=== PATIENT | male | born 1985 | race Caucasian/White ===

== ENCOUNTER 2018-06-06 18:19 | Inpatient (IN) | payer MEDICARE, MEDICAID, SELFPAY ==
[2018-06-06 18:20] VITALS: BP 130/74; PULSE 116; RESP 18; TEMP 37.2; O2SAT 98; BMI 29.7
--- NOTE | 2018-06-06 19:07 | ED.VIS.GEN ---
History of Present Illness Chief Complaint: Abd Pain Informant: Patient Onset: Days - 1.5 Context: Gradual Onset Timing: Continuous Quality: ache Location: RLQ Current Severity: Moderate Maximum Severity: Moderate Worsened by: movement Relieved by: nothing Associated Symptoms: nausea, low back pain, low-grade fever around 100 Narrative: Patient states she has never had pain like this before. States he was having some generalized abdominal cramping yesterday but now it is more right lower quadrant pain. No urinary symptoms. Pain is somewhat colicky at times but not always, it is constant and not intermittent. The pain radiates into both anterior thighs down to both knees. Denies any radiation into his scrotum/testicles. No history of any surgeries. Has had normal bowel movements when he has had them, however his last one was 2 days ago and he states that is unusual for him, usually goes daily. - Past Medical History (1) Depression Status: Chronic (2) Back pain Status: Chronic Past Medical History - Allergies and Home Meds Allergies/Adverse Reactions: Allergies Penicillins Allergy (Verified 06/06/18 18:21) Hives Primary Care Physician: Lamont Escobar III, MD [Primary Care Provider] - Surgical History: no surgical history Smoking Status: Never smoker Review of Systems All systems negative except as indicated General: Reports: Fever, Malaise Cardiovascular: Denies: Chest pain, Palpitations Respiratory: Denies: Dyspnea, Cough, Dyspnea on exertion Gastrointestinal: Reports: Abdominal pain, Nausea, Constipation - No hard stools, just has not gone in 2 days despite normal appetite. Denies: Vomiting, Diarrhea, Melena, Hematochezia Genitourinary: Denies: Dysuria, Hematuria, Frequency Musculoskeletal: Reports: Back pain, Extremity Pain. Denies: Neck pain Physical Exam Vital Signs/Narrative: Vital Signs Temp Pulse Resp BP Pulse Ox 06/06/18 18:20 98.9 F 116 H 18 130/74 H 98 Inital Vital Signs reviewed: Yes General: Well nourished, Well developed, Unkempt Head: Normocephalic, Atraumatic Eyes: Perrl, EOMI ENT: Moist mucous membranes, No rhinorrhea Neck: Supple, Nontender Cardiovascular: Regular rate, Regular rhythm, No murmurs, Tachycardia - mild Respiratory: No distress, CTA bilaterally, Chest nontender Abdomen: Soft, Nondistended, Normal bowel sounds, Tender - Distal/lateral right lower quadrant. No significant tenderness at the true McBurney's point, Guarding - Voluntary. Negative for: Rebound tenderness Back: Normal Inspection, - - Right distal low back mild tenderness to palpation, around the SI joint. Negative for: CVA tenderness Extremities: Nontender, No edema Skin: Normal color, No rash Neurological: Alert, Oriented x3, Cranial nerves II-XII grossly intact, Normal Strength, Normal Sensation Psychological: Normal affect Diagnostic/Tx/Re-eval Impressions Abdomen/Pelvis CT 06/06/18 19:06 IMPRESSION: Acute appendicitis. No free air. Electronically Signed: Jermaine Villasenor DO at 20:44 EDT , Service support , 06/06/18 19:06 Abdomen/Pelvis W IV Cont ONLY [CT] Stat Laboratory Results 06/06/18 06/06/18 06/06/18 Range/Units 19:17 19:17 19:25 WBC 12.5 H (4.4-11.0) K/mm3 RBC 5.15 (4.6-6.2) M/mm3 Hgb 15.3 (13.0-16.5) g/dl Hct 45.0 (40-54) % MCV 87.4 (80-94) fL MCH 29.7 (27.0-32.0) pg MCHC 34.0 (32-36) g/gl RDW 12.8 (11.6-14.6) % RDW Differential 41.2 (35.1-43.9) fl Plt Count 189 (150-450) K/mm3 MPV 9.2 (6.2-12.0) fl Immature Gran % (Auto) 0.200 (0.0-0.9) % Neut % (Auto) 73.6 H (47-70) % Lymph % (Auto) 9.7 L (19-41) % [place] % (Auto) 16.1 H (0-10) % Eos % (Auto) 0.2 (0-5) % Baso % (Auto) 0.2 (0-1) % Absolute Neuts (auto) 9.2 H (2.0-7.7) X10^3/uL Absolute Lymphs (auto) 1.21 (0.83-4.51) X10^3/ul Total Counted Not Reportable Differential Comment SCANNED Diff Path Review February Sodium 137 (136-145) mmol/L Potassium 3.7 (3.5-5.1) mmol/L Chloride 105 (98-107) mmol/L Carbon Dioxide 24.0 (21.0-32.0) mmol/L Anion Gap 8 (5-15) BUN 7 (7-18) mg/dL Creatinine 1.14 (0.70-1.30) mg/dL Estim Creat Clear Calc 104.16 ml/min Est GFR (MDRD) Af Amer 95 (>60) mL/min Est GFR (MDRD) Non-Af 79 (>60) mL/min BUN/Creatinine Ratio 6.1 L (10-20) RATIO Glucose 100 (74-106) mg/dL Calcium 8.8 (8.5-10.1) mg/dL Urine Color Yellow (Yellow) Urine Clarity Clear (Clear) Urine pH 6.0 (5.0 - 8.0) Ur Specific [place] 1.015 (1.002-1.030) Urine Protein 15 H (Negative) mg/dl Urine Glucose (UA) Normal (Normal) mg/dl Urine Ketones Negative (Negative) mg/dl Urine Occult Blood Negative (Negative) /ul Urine Nitrite Negative (Negative) Urine Bilirubin Negative (Negative) mg/dL Urine Urobilinogen Normal (Normal) mg/dl Ur Leukocyte Esterase 25 H (Negative) /ul Urine RBC 0 SEEN (0-5) /hpf Urine WBC 0 SEEN (0-5) /hpf Ur Squamous Epith Cells 0 SEEN (0-5) /hpf Urine Bacteria RARE (None Seen) /hpf Urine Mucus 2+ (<or=2+) /hpf - Medical Decision Making Patient was treated with morphine and had significant improvement of his discomfort and remained stable throughout the emergency department visit. Labs show mild leukocytosis. CT was performed given appendicitis and kidney stones both being included in the differential diagnosis, the CT showed acute appendicitis with a nonruptured appendix at 7 mm. I saw this when I checked the report, no call was received from radiology. Patient remained stable. I gave him aztreonam 2 g IV, since he has a penicillin allergy. I recommended admission, however the patient initially was very adamant that he be discharged home AGAINST MEDICAL ADVICE on antibiotics. We discussed at length risks and benefits of doing so, and eventually changed his mind and at this time is okay staying in the hospital. Discussed with Dr. Gao who will likely recommend surgery in the morning. The patient understands this and is willing to stay in the hospital. ED Disposition - Plan for ED Patient: Disposition: Acute Care [facility] Chief Complaint: Abd Pain Diagnosis: Acute appendicitis
[2018-06-06] MEDS: 0.9% Normal Saline 1,000 ML 125 ML IV (19:19)
[2018-06-06] MEDS: Ondansetron 4 MG/2 ML Vial IV (19:19)
[2018-06-06] MEDS: Morphine 4 MG/ML Syringe IV ×2 (19:19→23:48)
[2018-06-06 19:28] LABS: Absolute Lymphocyte Count 1.21 X10^3/ul (0.83-4.51); Absolute Neutrophil Count 9.2 X10^3/uL (2.0-7.7); Basophil# 0.02 X10^3/uL; Basophil% 0.2 % (0-1); Eosinophil# 0.02 X10^3/uL; Eosinophils% 0.2 % (0-5); Hemoglobin 15.3 g/dl (13.0-16.5); Lymphocyte # 1.21 X10^3/ul (4.0); Lymphocyte % 9.7 % (19-41); Mean Corpuscular Hgb 29.7 pg (27.0-32.0); Mean Corpuscular Volume 87.4 fL (80-94); Mean Platelet Vol. 9.2 fl (6.2-12.0); Monocyte# 2.01 X10^3/uL; Monocyte% 16.1 % (0-10); Neutrophil # 9.17 X10^3/uL (2.7-7.7); Neutrophil % 73.6 % (47-70); Platelet Count 189 K/mm3 (150-450); RBC Distribution Width CV 12.8 % (11.6-14.6); RBC Distribution Width SD 41.2 fl (35.1-43.9); Red Blood Count 5.15 M/mm3 (4.6-6.2); White Blood Count 12.5 K/mm3 (4.4-11.0)
[2018-06-06 19:31] LABS: Differential Indicated SCAN CRITERIA MET; POSITIVE COUNT NO; POSITIVE DIFFERENTIAL YES; POSITIVE MORPHOLOGY NO
[2018-06-06 19:31] LABS: Red Blood Cells-Urine 0 SEEN /hpf (0-5); Squamous Epithelial Cells - UA 0 SEEN /hpf (0-5); White Blood Cells 0 SEEN /hpf (0-5)
[2018-06-06 19:32] LABS: Color, Urine Yellow (Yellow); Glucose, Dipstick Normal (Normal); Ketone-Dipstick Negative (Negative); Leukocyte Esterase-Dipstick 25 /ul (Negative); Nitrite-Dipstick Negative (Negative); Occult Blood-Urine Negative /ul (Negative); Protein-Dipstick 15 mg/dl (Negative); Specific Gravity, Urine 1.015 (1.002-1.030); Urine Bilirubin Dipstick Negative (Negative); Urine Clarity Clear (Clear); Urine Urobilinogen Normal (Normal)
[2018-06-06 19:38] LABS: Anion Gap 8 (5-15); BUN 7 mg/dL (7-18); BUN/Creat Ratio 6.1 RATIO (10-20); Calcium,Total 8.8 mg/dL (8.5-10.1); Chloride 105 mmol/L (98-107); Creatinine, Serum 1.14 mg/dL (0.70-1.30); EST Glomerular Filtration Rate 79 mL/min (>60); Est Glom Filt Rate - Afr Amer 95 mL/min (>60); Estimated Creatinine Clearance 104.16 ml/min; Glucose 100 mg/dL (74-106); Potassium 3.7 mmol/L (3.5-5.1); Sodium Level 137 mmol/L (136-145)
[2018-06-06 19:40] LABS: Bacteria RARE /hpf (None Seen); Mucous, Urine 2+ /hpf (<or=2+)
[2018-06-06 19:57] LABS: Differential Comment SCANNED
[2018-06-06 20:27] VITALS: BP 126/82; PULSE 81; RESP 16; O2SAT 98
[2018-06-06 22:31] VITALS: BP 136/75; PULSE 91; RESP 16; O2SAT 98
[2018-06-07] VITALS (17 sets, daily range): BP systolic 111–165; BP diastolic 63–99; PULSE 57–99; RESP 16–20; TEMP 36.3–37.8; O2SAT 93–99; BMI 29.7; BMI 29.9
--- NOTE | 2018-06-07 | APP_PTH ---
PATIENT: LENNY PALAFOX LOC: MS3 U#:[id number] AGE/SX: 33/M ROOM: MS313 RE06/07/[address]: Dr. Marnie Gao MD : 1985 BED: 1 DIS: 06/08/2018 SPEC #: [id number] RECD: 06/07/18 12:14 STATUS: MAGDALENA REQ #: [id number] GEOVANNY: 06/07/18 00:[address]: Marnie Gao DEPT: SURGICAL PATHOLOGY RECD BY: Josh Lloyd ENTERED: 06/07/18 12:14 SP TYPE: APPENDIX OTHR DR: Dr. Lamont Escobar III, MD Tissues: Appendix, NOS Procedures: Surgery Specimen Level III HEADER OPERATION: Laparoscopic appendectomy PRE-OP DIAGNOSIS: Right lower quadrant pain, abdominal CT scan TISSUE SUBMITTED: Appendix MICROSCOPIC DIAGNOSIS Appendix, appendectomy: Acute appendicitis. Acute serositis. MICROSCOPIC DESCRIPTION Slides are reviewed. GROSS DESCRIPTION Received is one container labeled with the patient's name and designated appendix. The specimen consists of an appendix measuring 6 cm in length and 1 cm in greatest diameter. No obvious perforation is identified. Serial sections reveal a patent lumen. Instructor Creeler sections are submitted in four cassette. / AM:mayte 06/07/18 TC:2 CPT: [id number]
[2018-06-07] MEDS: Lactated Ringers 1,000 ML 100 ML IV ×2 (00:26→13:54)
--- NOTE | 2018-06-07 04:42 | PCM.HP.BLA ---
History and Physical Date of Admission: 06/07/18 Chief Complaint: abdominal pain History of Present Illness: 33 y/o WM presents with right lower quadrant abdominal pain since Monday evening. Has associate nausea. Denies fevers. No previous such abdominal pain. Evaluated in the ED. WBC 12.5K, left shift of differential, afebrile CT scan obtained - tubular, thick walled appendix >7mm consistent with acute appendicitis Patient given IV aztreonam in the ED. Has allergy to pcn - hives Patient has anorexia Past Medical History: denies major medical illnesses Past Surgical History: denies Medications: lexapro remeron ibuprofen prn Allergies: pcn - hives Social history: TOB use smokes regularly occasional marijuana use Review of Systems: General - denies fevers, has anorexia Cardiovascular denies chest pain, denies history of heart attack Pulmonary denies shortness of breath, denies coughing up blood Gastrointestinal as per HPI, denies blood in stools Neurological denies numbness/weakness of extremities, denies history of stroke Genitourinary denies burning with urination, denies blood in urine Hematological denies spontaneous/prolonged bleeding Skin denies open non healing wounds Musculoskeletal has back pain, denies history of fractures Endocrine denies diabetes Psychological denies hallucinations Physical examination: Vital signs Temp 98.9F HR 116 BP 130/74 RR 18 General WD/WN WM in no apparent distress, alert and oriented HEENT Normocephalic. EOM intact with sclera clear and no icterus noted. Neck is supple with no jugular venous distention noted. Trachea is midline. Lungs clear to auscultation, normal breath sounds in all lung vázquez. No rales/rhonchi/wheezing noted. No labored breathing noted, such as retractions. No cough heard. Heart normal S1 and S2 auscultated. No rubs/clicks/murmurs noted. Normal size and location by auscultation. Abdomen soft, protuberant, tender in right lower quadrant with rebound, decreased bowel sounds, difficult to determine if any masses due to body habitus Extremities no calf tenderness noted. No pitting edema noted. Genitourinary/Rectal deferred Skin normal skin integrity. Neurological cranial nerves II-XII intact. Normal motor strength in arms and legs. No localized numbness detected. Psychological normal affect, patient is calm and appropriate Impression: right lower quadrant abdominal pain abnormal appendix by CT scan leukocytosis Discussion/Plan: I have discussed the above with the patient. The patient has signs/symptoms of appendicitis. I have offered the patient the procedure of laparoscopic appendectomy. I have explained the procedure to the patient. I have counseled the patient as to the risks of the procedure, including but not limited to: infection, bleeding, injury to any blood vessels/nerves, scar tissue, injury to any intrabdominal organs, injury to kidney/ureters, injury to bowel/bladder, intraabdominal abscess/bleeding, hernias at incisional sites, wound infections, possible open procedure, complications of anesthesia, postoperative pneumonia/cardiac problems/blood clots etc. the patient understands. He agrees to proceed. I have answered all questions to the patients satisfaction and the patient has no further questions.
--- NOTE | 2018-06-07 05:57 | PCM.IMDPSTOP ---
Immediate Post-Op Note Date of Procedure: 06/07/18 Primary Surgeon/Physician: Marnie Gao medical device engineer: NOT,DEFINED Pre-Operative Diagnosis: right lower quadrant abdominal pain, leukocytosis, abnormal appendix by CT scan Post-Operative Diagnosis: perforated appendicits with contained retroperitoneal abscess Surgery/Procedure Performed:: laparoscopic appendectomy Description of Surgical Findings:: small right inguinal hernia noted, perforated appendicitis with contained rupture to retroperitoneum, no peritonitis noted Estimated Blood Loss: 20 ml Specimen's removed: appendix Drains: 15 Fr round passive right in right lower quadrant Type of Anesthesia:: General ASA Class: ASA2 Mod Systematic Disease - Admit VTE Documentation VTE Present on Admission: Yes VTE Mechan Device Prophylaxis: SCD's
--- NOTE | 2018-06-07 05:58 | PCM.DC.APPY ---
Discharge Diet: No Restrictions - drink plenty of fluids Discharge Activity: Return to Normal Activity, May not drive while taking narcotic pain medications. Return to work on:: 06/22/18 Lifting Restrictions: no lifting greater than 20 pounds for 2 weeks. Call your doctor if your incision/area has: Continuous Slow Oozing, Foul Smelling Discharge Call your doctor if you observe: Fever of 101 or Higher Additional Dressing/Incision Instructions:: Leave dressings intact. Sponge bathe only Medications to take at Discharge Escitalopram Oxalate [Lexapro] 20 mg PO DAILY 06/03/14 Mirtazapine [Remeron] 7.5 mg PO QHS 06/03/14 Clindamycin HCl [Cleocin] 300 mg PO Q6H #40 capsule 08/10/17 Hydrocodone/Acetaminophen [[place] 5-325 Tablet] 1 ea PO Q6H PRN PRN 7 Days #20 tab 06/07/18 Ibuprofen [Motrin] 600 mg PO Q6H PRN 06/07/18 Ciprofloxacin [Cipro] 500 mg PO BID #10 tab 06/08/18 Phenazopyridine HCl [Pyridium] 100 mg PO BID PRN PRN #10 tab 06/08/18 Allergies/Adverse Reactions: Allergies Penicillins Allergy (Verified 06/06/18 18:21) Hives The following prescriptions were given: Hydrocodone/Acetaminophen [[place] 5-325 Tablet] 1 ea PO Q6H PRN PRN 7 Days #20 tab PRN Reason: Pain Phenazopyridine HCl [Pyridium] 100 mg PO BID PRN PRN #10 tab PRN Reason: dysuria Ciprofloxacin [Cipro] 500 mg PO BID #10 tab Primary Care Physician: Lamont Escobar III, MD [Primary Care Provider] - Test Results: Test results from this visit will be discussed in further detail at your follow-up appointment, if applicable. Please Follow Up With: Marnie Gao MD - call When: to be seen on June 11, 11:00
[2018-06-07] MEDS: Bupivacaine Mpf 0.5% 30 ML VIAL (07:33)
--- NOTE | 2018-06-07 07:57 | OP.PCM_ITS ---
Report of Operation Date of Procedure: 06/07/18 Pre-Operative Diagnosis: right lower quadrant abdominal pain, leukocytosis, abnormal appendix by CT scan Post-Operative Diagnosis: perforated appendicits with contained retroperitoneal abscess Surgery/Procedure Performed:: laparoscopic appendectomy Description of Surgical Findings:: small right inguinal hernia noted, perforated appendicitis with contained rupture to retroperitoneum, no peritonitis noted signs and displays salesperson: NOT,DEFINED Type of Anesthesia:: General Anesthesiologist: Donovan Ly Specimen's removed: appendix Drains: 15 Fr round passive right in right lower quadrant Estimated Blood Loss (mL): 20 ml Fluids Replaced: 1200 ml RL Description of Procedure: After informed consent was obtained, the patient was brought into the operating room. Appropriate time out protocol was followed. He was then placed in the supine position on the operating table. The patient was then placed under general anesthesia. The patient?s abdomen was then prepped with a sterile surgical skin preparation and sterile surgical drapes were placed. The infraumbilical skin fold was grasped with penetrating clamps and the skin and subcutaneous tissues were infiltrated with 0.5% marcaine. A skin incision was then made with a 15 blade scalpel. A Veress needle was then inserted into the intraabdominal cavity and checked to be in the proper position with a normal saline drop test. A CO2 pneumoperitoneum was then created. Once this was achieved, the Veress needle was removed and a 5 mm trocar was placed in its stead. A 5 mm laparoscope was then inserted into the trocar. Careful examination of the intraabdominal contents was then done. There was no evidence of injury to any internal organs from placement of the Veress needle or the trocar. Under direct visualization, a 12mm suprapubic trocar and a 5mm left lower quadrant trocar was then placed into the intraabdominal cavity. The skin and subcutaneous tissues at these sites were first infiltrated with 0.5%. Attention was then directed to the right lower quadrant. There was a large amount of inflammation in the right lower quadrant. The appendix was not well visualized. The inflammatory tissue was dissected using the Harmonic scalpel. This took some time. The appendix was thus visualized. It was retrocecal. The dissection continued to follow to the tip of the appendix. The distal aspect of the appendix was adherent to the side wall and there was a contained retroperitoneal abscess that penetrated through the peritoneal lining. This was copiously lavaged and irrigated. There was purulent fluid noted, but this was contained. The mesentery of the appendix was taken down by cauterizing the tissue from the free edge to the base of the appendix with the Kleppinger device. Once the base of the appendix was freed of surrounding tissues, then the linear gastrointestinal stapling device was brought into the abdominal cavity via the 12mm port and placed across the base of the appendix. The stapling device was fired, thus stapling across the base of the appendix and transecting it simultaneously. The appendix was then placed in an Endobag and this was brought out through the suprapubic trocar. The appendix was then forwarded to Pathology for analysis. The appendiceal stump was carefully examined. There was no evidence of any active bleeding or fecal leakage. Due to the inflammatory oozing, surgicel was applied to the area. A 15 Fr round drain was placed in the intraabdominal cavity. The surrounding tissues were also examined and there was no evidence of any active bleeding or fecal/bile leakage. The intraabdominal cavity was examined and there was no evidence of further inflammation or tissue abnormality. There was no evidence of any purulent peritoneal fluid. The CO2 pneumoperitoneum was released and all trocars were removed intact. The suprapubic fascia was reapproximated with a figure-of-8 vicryl suture. The drain was sutured to the skin using nylon suture. All skin incisions were reapproximated with monocryl suture. Cavilon and steristrips were applied to reinforce skin closure and proper sterile dressings were placed. The patient was then extubated and brought to the Recovery Room in stable condition. - Complications none noted - Admit VTE Documentation VTE Present on Admission: Yes VTE Mechan Device Prophylaxis: SCD's
[2018-06-07] MEDS: Ipratropium/Albuterol Sulfate 3 ML AMPUL.NEB INHALATION (08:43)
--- NOTE | 2018-06-07 08:46 | CASEMGMT ---
Social Work Note Pt is listed as self pay on this worker's report. CEFERINO placed a call to [facility] and spoke with Chely. Per Cehly pt has Medicare and Medicaid. Chely Rosenberg LOT ATTENDANT, [employer]TING
[2018-06-07 10:55] LABS: Pathologist Review Reviewed
[2018-06-07] MEDS: HYDROcodone Bitartrate/Apap 5/325 Tablet PO ×2 (12:29→21:17)
[2018-06-07] MEDS: Morphine 4 MG/ML Syringe IV ×2 (13:52→17:49)
[2018-06-08] MEDS: Lactated Ringers 1,000 ML 100 ML IV ×2 (00:23→10:15)
[2018-06-08 03:06] VITALS: BP 132/84; PULSE 93; RESP 16; TEMP 36.4; O2SAT 92
[2018-06-08] MEDS: Phenazopyridine 95 MG Tablet PO ×2 (03:17→08:37)
[2018-06-08] MEDS: Mirtazapine 15 MG Tablet PO (03:17)
[2018-06-08] MEDS: HYDROcodone Bitartrate/Apap 5/325 Tablet PO ×2 (07:05→13:47)
--- NOTE | 2018-06-08 07:26 | PCM.PN.SRG ---
Patient Problems: Active and Suspected Problems Acute appendicitis (Acute) Subjective: Patient complaint of pain of lower abdomen, still requiring IV pain medications, also had complaint burning with urination and he states that this is relieved by pyridium denies passing flatus Has not ambulated in hallways - Physical Exam General: Alert, Oriented x3 Oral: Moist Mucosa Neck: Supple Abdomen: Soft, - - ROSALIA drain - serosanguinous drainage, no purulent Vital Signs Temp Pulse Resp BP Pulse Ox 97.6 F L 93 16 132/84 H 92 06/08/18 03:06 06/08/18 03:06 06/08/18 03:06 06/08/18 03:06 06/08/18 03:06 Oxygen Delivery Method Room Air Intake and Output for Last 24 Hours 06/06/18 06/07/18 06/08/18 23:59 23:59 23:59 Intake Total 1553 / 3573 1365 / 1365 Output Total 50 / 780 550 / 550 Balance 1503 / 2793 815 / 815 Medical Necessity - Tobacco Use Smoking Status: Current every day smoker Assessment/Plan All Active Problems Acute appendicitis (Acute) POD#1 s/p laparoscopic appendectomy for contained perforation appendix with abscess Plan: Continue antibiotics encourage ambulation and pulmonary toilet maintain ROSALIA drain advance diet when passing flatus patient requesting ibuprofen
[2018-06-08 08:36] VITALS: BP 113/78; PULSE 91; RESP 18; TEMP 36.7; O2SAT 93
[2018-06-08] MEDS: Ibuprofen 600 MG Tablet PO ×2 (08:37→16:21)
--- NOTE | 2018-06-08 10:20 | CASEMGMT ---
JUDITH GAGE Face to Face with patient for initial transition planning/care coordination assessment. RN CM introduced self and role at [facility]. Patient lying in bed, alert and oriented. Patient willing to participate in assessment and is able to answer all questions appropriately. Care providers, pharmacy, and demographics verified. See link attached. Patient wishes to discharge home, denies need for home health at this time. Patient states he has no further needs or concerns at this time. CM to follow for discharge planning needs that may arise. Disposition Plan: Patient to discharge home with family support and follow-up plans in place. Chely ALEXANDER, RN, CM
[2018-06-08 13:50] VITALS: BP 131/87; PULSE 89; RESP 18; TEMP 36.5; O2SAT 97
--- NOTE | 2018-06-08 17:14 | PCM.PN.SRG ---
Patient Problems: Active and Suspected Problems Acute appendicitis (Acute) Subjective: Patient states that he wants to be discharged, feels anxious in hospital complaint of right shoulder pain- feels like numb then blood rushing into it - Physical Exam Vital Signs Temp Pulse Resp BP Pulse Ox 97.7 F L 89 18 131/87 H 97 06/08/18 13:50 06/08/18 13:50 06/08/18 13:50 06/08/18 13:50 06/08/18 13:50 Oxygen Delivery Method Room Air Intake and Output for Last 24 Hours 06/06/18 06/07/18 06/08/18 23:59 23:59 23:59 Intake Total 1553 / 3573 3554 / 3554 Output Total 50 / 780 630 / 630 Balance 1503 / 2793 2924 / 2924 Medical Necessity - Tobacco Use Smoking Status: Current every day smoker Assessment/Plan All Active Problems Acute appendicitis (Acute) POD#1 s/p laparoscopic appendectomy for contained perforation appendix with abscess Plan: Patient tolerated diet, passing flatus I have discussed with him, he wants to be discharged. I have offered him options of staying an additional night versus going home, he wishes to be discharged. Will discharge on antibiotics, pain meds, and pyridium
== END 2018-06-08 18:30 | disposition home or self-care (01) | DRG 338 ==
LOC: ED 22:55 → MS3 23:25
PROVIDERS: Admitting Provider Surgery; Emergency Provider Emergency Medicine; Family Provider Family Medicine; PCP Family Medicine; Visit Provider Surgery
PROC: 0DTJ4ZZ Resection of Appendix, Percutaneous Endoscopic Approach (ICD-10-PCS; CPT 44970; principal; 2018-06-07 06:00)
DX: K35.3 Acute appendicitis with localized peritonitis (principal); K68.19 Other retroperitoneal abscess; K44.9 Diaphragmatic hernia without obstruction or gangrene
CPT/HCPCS: 74177; 80048; 81001; 85025; 88304; 93005; 94640; 97802; 99282; 99406; J7030; J7120; Q9967; A4216; J2405

== ENCOUNTER 2019-02-20 15:22 | Emergency (ER) | payer MEDICARE, SELFPAY ==
[2019-02-20 15:23] VITALS: BP 158/81; PULSE 84; RESP 16; TEMP 36.4; O2SAT 97; BMI 32.0
--- NOTE | 2019-02-20 15:43 | ED.VISSUMM ---
- ER Visit Summary Date of Service: 02/20/19 Chief Complaint: Right arm pain History of Present Illness: The patient is a 33 M presenting with right arm pain. He states this started 2 days ago. He does not recall a specific injury. He does not remember any heavy lifting. He has pain in his right bicep that is worsened with movement. His range of motion has improved today. He has been taking ibuprofen. He states he has a history of anxiety and this is causing his anxiety to worsen. He denies any other complaints. Physical Examination: Vitals are stable. Patient is afebrile. Alert no acute distress. HEENT exam is unremarkable. Neck is supple. Lungs are clear and equal bilaterally. Heart is regular rate and rhythm. Extremities mild tenderness along the bicep. Active full range of motion. Normal strength and sensation. No erythema or warmth. Neurovascularly intact distally. Skin is warm and dry. No focal neurologic deficit. Remainder of exam is unremarkable. Emergency Department Course and Treatment: Patient was given Toradol, Norflex IM. X-ray right humerus shows no acute process. Patient is feeling improved. He is given a prescription for Flexeril. Advised to follow-up with his primary care physician. Advised to return to ED if worsening complaints. Disposition: Discharge home Impression: Right arm pain This note was generated with [email or web address] dictation software. It may contain incorrect words, spelling, and punctuation that were not noted in review of the chart prior to signing ED Disposition - Plan for ED Patient: Disposition: Home or Assisted Living Instructions: ED Strain Muscle Ext Prescriptions: Cyclobenzaprine [Flexeril] 10 mg PO TID PRN #20 tablet PRN Reason: Muscle Spasm Referrals: Lamont Escobar III, MD [Primary Care Provider] -
[2019-02-20] MEDS: Ketorolac 60 MG/2 ML Vial IM (15:45)
[2019-02-20] MEDS: Orphenadrine 60 MG/2 ML Ampul IM (15:45)
--- NOTE | 2019-02-20 15:50 | RAD_ITS ---
STUDY: X-RAY - RIGHT HUMERUS REASON FOR EXAM: Male, 33 years old. Pain TECHNIQUE: Frontal and lateral view(s) of the humerus. COMPARISON: None. FINDINGS: Normal visualized humerus. There is no demonstrated fracture or osseous destructive process. There is no demonstrated soft tissue abnormality. RAD/Humerus min 2 Views IMPRESSION: Normal x-ray examination of the humerus. Electronically Signed: Brian Thomas MD at 16:13 EDT , Service support ,
--- NOTE | 2019-02-20 16:30 | ED.DEP ---
ED Disposition - Plan for ED Patient: Instructions: ED Strain Muscle Ext Prescriptions: Cyclobenzaprine [Flexeril] 10 mg PO TID PRN #20 tablet PRN Reason: Muscle Spasm Referrals: Lamont Escobar III, MD [Primary Care Provider] -
== END 2019-02-20 16:57 | disposition home or self-care (01) ==
PROVIDERS: Emergency Provider Emergency Medicine; Family Provider Family Medicine; PCP Family Medicine
DX: M79.601 Pain in right arm (principal); F41.9 Anxiety disorder, unspecified; Z72.0 Tobacco use
CPT/HCPCS: 73060; 96372; 99282

== ENCOUNTER 2019-04-11 13:17 | Emergency (ER) | payer MEDICARE, SELFPAY ==
[2019-04-11 13:17] VITALS: BP 151/98; PULSE 78; RESP 16; TEMP 36.8; O2SAT 96; BMI 31.6
--- NOTE | 2019-04-11 13:29 | ED.VIS.DENTA ---
History of Present Illness Chief Complaint: Dental Informant: Patient Onset: Days Context: Sudden Onset Timing: Continuous Quality: Pain Location: Lower incisors Current Severity: Mild Maximum Severity: Severe Worsened by: Cold and hot liquid Relieved by: - - Patient is taking ibuprofen, Aleve and used oral gel with no improvement Associated Symptoms: Hot, Cold, Sensitivity Narrative: Patient is a 33-year-old male who presents with dental pain started several days ago. Pain is worse with hot and cold liquids. He denies fever, chills or night sweats. He denies change in voice, denies swelling base of his tongue or floor of his mouth. He denies change in voice. Denies difficulty swallowing or breathing. There is no history rheumatic fever, murmur, SBE, IV drug use or being immune suppressed. Patient reports allergy to penicillin. Prior similar symptoms: Yes Recent Illness/Hospitalization: No Past Medical History - Allergies and Home Meds Allergies/Adverse Reactions: Allergies Penicillins Allergy (Verified 04/11/19 13:19) Hives Primary Care Physician: Lamont Escobar III, MD [Primary Care Provider] - Past Medical History: None Surgical History: no surgical history Lives: Alone Smoking Status: Current every day smoker Alcohol: None Drugs: None Review of Systems General: Denies: Chills, Fever, Malaise, Sweats Eyes: Denies: Visual changes - bilaterally, Blurred Vision - bilaterally ENT: Reports: - - No dysphonia or dysphasia. No difficulty opening or closing his mouth completely. Denies: Rhinorrhea, Sore throat Cardiovascular: Denies: Chest pain, Palpitations Respiratory: Denies: Dyspnea, Cough, Dyspnea on exertion Gastrointestinal: Denies: Nausea, Vomiting Musculoskeletal: Denies: Myalgias, Arthralgias, Neck pain, Back pain, Swelling, Extremity Pain, -, - Skin: Denies: Rash, Abscess, Wounds Hematologic: Denies: Easy bruising, Easy bleeding Physical Exam Vital Signs/Narrative: Vital Signs Temp Pulse Resp BP Pulse Ox 04/11/19 13:17 98.2 F 78 16 151/98 H 96 Inital Vital Signs reviewed: Yes General: Well nourished, Well developed Head: Normocephalic, Atraumatic ENT: Moist mucous membranes, No nasal trauma, No rhinorrhea, TM's clear. Negative for: Nasal congestion, Sinus tenderness, TM erythema left Mouth/Throat: Normal oral mucosa, Normal posterior oropharynx, No sublingual edema, Normal Stensen's duct, Focal gum swelling, Gingivitis, Tenderness on tooth percussion, Widespread dental decay. Negative for: Apthous ulcer, Dental trauma, Trismus Neck: Supple, No lymphadenopathy, Nontender, No JVD. Negative for: Anterior submandibular lymphadenopathy, Posterior submandibular lymphadenopathy, Anterior submental lymphadenopathy, Posterior submental lymphadenopathy, Soft tissue swelling, Submandibular soft tissue swelling, Submental soft tissue swelling, Parotid tenderness, - - Trachea is midline. There is no stridor. Cardiovascular: Regular rate, Regular rhythm, No murmurs, Normal S1, Normal S2 Respiratory: No distress, CTA bilaterally, Chest nontender Neurological: Alert, Oriented x3, Cranial nerves II-XII grossly intact, Normal Strength, Normal Sensation Psychological: Normal affect Diagnostic/Tx/Re-eval - Medical Decision Making Patient with extensive dental decay with exposure of dentin upper and lower incisors. There is evidence of periodontal disease as well as gingivitis. Will prescribe 10 [place] and clindamycin. He was in instructed to [facility] ED Disposition - Plan for ED Patient: Disposition: Home or Assisted Living Diagnosis: Dental caries extending into dentin, Dental caries extending into pulp, Gingivitis due to dental plaque, Periodontal disease Instructions: Dental Pain Prescriptions: Clindamycin HCl [Cleocin] 300 mg PO Q6H #28 cap Prescription Printed Hydrocodone Bitart/Apap 5-325 [[place] 5MG-325MG] 1 tab PO Q6H PRN PRN 3 Days #10 tab PRN Reason: Pain Prescription Printed Referrals: Lamont Escobar III, MD [Primary Care Provider] - [facility] [NON-STAFF] - As soon as possible
[2019-04-11 13:45] VITALS: PULSE 89; RESP 16; O2SAT 98
[2019-04-11] MEDS: HYDROcodone Bitartrate/Apap 5/325 Tablet PO (13:50)
[2019-04-11] MEDS: Clindamycin HCl 150 MG Capsule 300 MG PO (13:51)
[2019-04-11] MEDS: Ibuprofen 400 MG Tablet 800 MG PO (13:51)
== END 2019-04-11 13:53 | disposition home or self-care (01) ==
LOC: ED 13:45
PROVIDERS: Emergency Provider Emergency Medicine; Family Provider Family Medicine; PCP Family Medicine
DX: K05.6 Periodontal disease, unspecified (principal); K05.10 Chronic gingivitis, plaque induced; K02.9 Dental caries, unspecified; F17.200 Nicotine dependence, unspecified, uncomplicated
CPT/HCPCS: 99283

== ENCOUNTER 2021-07-24 19:35 | Emergency (ER) | payer MEDICARE, SELFPAY ==
[2021-07-24 19:36] VITALS: BP 143/80; PULSE 93; RESP 16; TEMP 36.2; O2SAT 97; BMI 24.6
--- NOTE | 2021-07-24 21:04 | EDS_ITS ---
HPI History of Present Illness Chief Complaint: Dental Informant: patient Narrative Narrative: 36-year-old male presents to the emergency room out of concern for dental abscess. Patient states he has widespread dental decay and he has had several these abscesses. He states that he did have a dentist but not anymore. He notes that the swelling seems to be worse today so he knew he needed to come in. No reported fevers. No difficulty swallowing. Patient states that he attempted to drain the gumline at home with no return of pus. [facility] Medical History Dental abscess Home Medications mirtazapine 15 mg PO QHS 06/03/14 [History Last Taken Unknown] Tylenol 1 g PO/SL 07/24/21 [History Last Taken Unknown] clindamycin HCl [Cleocin HCl] 300 mg PO Q6H #40 capsule 07/24/21 [Rx Last Taken Unknown] hydrocodone-acetaminophen 1 tab PO Q6H PRN PRN 3 Days #10 tablet 07/24/21 [Rx Last Taken Unknown] Allergy/AdvReac Type Severity Reaction Status Date / Time Penicillins Allergy Hives Verified 07/24/21 20:05 Social History (Updated 07/24/21 @ 21:[address] Cristian Amado DO) Smoking Status: Current every day smoker tobacco type: cigarettes substance use type: does not use ROS ROS ED Constitutional Constitutional ED: Denies chills or weight loss Eyes Eyes: Denies change in vision or diplopia ENT ENT ED: Reports other Details: Dental pain and facial swelling ; Denies ear pain, rhinorrhea or sore throat Cardiovascular Cardiovascular: Denies chest pain, orthopnea, palpitations or racing heartbeat Respiratory/Chest Respiratory/Chest: Denies cough, dyspnea or orthopnea Gastrointestinal Gastrointestinal: Denies abdominal pain, diarrhea, nausea or vomiting Genitourinary Genitourinary ED: Denies dysuria, hematuria or urinary frequency Musculoskeletal Musculoskeletal: Denies arthralgias or myalgias Integumentary Denies abscess or rash Neurologic Neurologic: Denies headache(s) or weakness Psychiatric Psychiatric: Denies anxiety, depression, suicidal ideation or suicidal thoughts Endocrine Endocrinology: Denies polydipsia, polyphagia or polyuria Allergic/Immunologic Allergic/Immunologic ED: Denies mouth swelling, tongue swelling or urticaria EXAM Physical Exam Const Vital Signs: 07/24/21 19:36 Temperature 97.1 F L Temperature Source Temporal Pulse Rate 93 Respiratory Rate 16 Blood Pressure 143/80 H Blood Pressure Mean 101 Pulse Ox 97 Oxygen Delivery Method Room Air Positive well nourished and well developed General Appearance ED: well developed HEENT Reports normocephalic, head/scalp atraumatic, TM's clear and moist mucous membranes HEENT Narrative: Patient has severe widespread tooth decay with only a few teeth remaining. There is some mild swelling along the gumline on the right upper teeth. There is some facial swelling with no significant erythema. There is n ot appear to be a drainable abscess at this time Tympanic Membrane ED: Yes TM's clear Eyes PERRL and EOMs intact bilaterally Neck no lymphadenopathy, supple and no JVD Resp normal respiratory effort and clear to auscultation bilaterally Cardio regular rate, regular rhythm and no murmurs GI normal to inspection, nondistended, normoactive bowel sounds and non-tender Palpation: soft Back/Spine no CVA tenderness and normal ROM Extremity normal to inspection General Extremety ED: Negative for edema General Extremity: Negative for edema Neuro oriented x3 and CN's II-XII intact bilaterally Sensorium / Orientation: alert Motor Exam: strength 5/5 throughout Psych mental status grossly normal Mood & Affect: Negative for depressed or tearful Skin no rashes or lesions noted and no wounds MDM MDM MDM Narrative Medical decision making narrative: Patient will be started on clindamycin due to a penicillin allergy. I will also start him on [place] for pain. He needs to see dentistry as soon as possible Discharge Plan Triage Chief Complaint: Dental ED Provider: Cristian Amado Dx/Rx/DC Orders Clinical Impression: Abscess, dental Instructions: Dental Abscess Prescriptions: New clindamycin HCl [Cleocin HCl] 300 MG capsule 300 mg PO Q6H Qty: 40 RF: 0 hydrocodone-acetaminophen [hydrocodone-acetaminophen] 1 TABLET tablet 1 tab PO Q6H PRN PRN (Reason: Pain) 3 Days Qty: 10 RF: 0 No Action mirtazapine 15 MG tablet 15 mg PO QHS RF: 0 Tylenol 1 g PO/SL RF: 0 Primary Care Provider: Lamont Escobar III Referrals: Lamont Escobar III, MD [Primary Care Provider] - Activity Restrictions/Additional Instructions: You need to see dentistry as soon as possible Disposition Disposition: Home, Self Care
== END 2021-07-24 21:36 | disposition home or self-care (01) ==
PROVIDERS: Emergency Provider Emergency Medicine; PCP Family Medicine
DX: K04.7 Periapical abscess without sinus (principal); K02.9 Dental caries, unspecified; F17.210 Nicotine dependence, cigarettes, uncomplicated
CPT/HCPCS: 99282

== ENCOUNTER 2022-06-25 10:13 | Emergency (ER) | payer MEDICARE, MEDICAID, SELFPAY ==
[2022-06-25 10:15] VITALS: BP 134/83; PULSE 81; RESP 18; TEMP 36.6; O2SAT 99; BMI 28.3
--- NOTE | 2022-06-25 10:26 | ED.VIS.DENTA ---
HPI History of Present Illness Chief Complaint: Dental Detail of Chief Complaint: Dental pain with right upper facial swelling Informant: patient Narrative Narrative: Patient presents to the emergency department complaint of dental pain for 2 days to right upper teeth. Patient states that he started noticing some facial swelling just last evening. He denies fever. He denies chills or sweats. He denies any trauma to his teeth. 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 Prior similar symptoms: Yes PFSH PFSH Medical History Dental abscess Home Medications mirtazapine 15 mg tablet 15 mg PO QHS Sleep 06/03/14 [History Last Taken Unknown] Tylenol 1 g PO/SL 07/24/21 [History Last Taken Unknown] clindamycin HCl 300 mg capsule (Cleocin HCl) 300 mg PO Q6H #40 CAPSULES 07/24/21 [Rx Last Taken Unknown] hydrocodone-acetaminophen 5-325mg 5mg-325mg 1 tab PO Q6H PRN PRN Pain 3 days #10 TABLETS 07/24/21 [Rx Last Taken Unknown] clindamycin HCl 300 mg capsule (Cleocin HCl) 300 mg PO Q6H #40 CAPSULES 06/25/22 [Rx Last Taken Unknown] hydrocodone-acetaminophen 5-325mg 5mg-325mg 1 tab PO Q4H PRN PRN Pain 2 days #10 TABLETS 06/25/22 [Rx Last Taken Unknown] Allergy/AdvReac Type Severity Reaction Status Date / Time Penicillins Allergy Hives Verified 06/25/22 10:17 Social History (Updated 07/24/21 @ 21:[address] Cristian Amado DO) Smoking Status: Current every day smoker tobacco type: cigarettes substance use type: does not use ROS ROS ED Constitutional Constitutional ED: Reports systems reviewed and no addt'l complaints, except as documented; Denies body ache(s), change in weight or chills Eyes Eyes: Denies acute decrease in peripheral vision, change in vision, double vision or loss of vision ENT ENT ED: Reports none and other Details: Dental pain with right upper facial swelling ; Denies ear pain, lip swelling, loss taste/smell, neck pain, otalgia or sore throat Cardiovascular Cardiovascular: Reports none; Denies abdominal pain, chest pain with activity, leg edema, lightheadedness, palpitations, rapid heart rate or syncope Respiratory/Chest Respiratory/Chest: Reports none; Denies change in mental status, dry cough, dyspnea, hemoptysis, shortness of breath at rest or shortness of breath with exertion Gastrointestinal Gastrointestinal: Reports none; Denies abdominal pain, change in stool character, diarrhea, hematemesis, hematochezia, melena, rectal bleeding or vomiting Genitourinary Genitourinary ED: Reports none; Denies abdominal discomfort, anuria, dysuria, genital pain or polyuria Musculoskeletal Musculoskeletal: Reports none; Denies arthralgias, back pain, difficulty walking, extremity pain, muscle weakness or myalgias Integumentary Reports none; Denies abscess or rash Neurologic Neurologic: Reports none; Denies abnormal gait, confusion, focal weakness, frequent falls, headache(s), loss of vision, numbness, paresthesias, radicular pain, vertigo or weakness Psychiatric Psychiatric: Reports systems reviewed and no addt'l complaints, except as documented and none; Denies behavioral changes, confusion, difficulty concentrating, hallucinations, suicidal ideation, tactile hallucinations or visual hallucinations Endocrine Endocrinology: Denies none, cold intolerance, excessive sweating, fatigue or heat intolerance Hematologic/Lymphatic Hematologic/Lymphatic: Reports none; Denies anemia, easy bleeding or easy bruising Allergic/Immunologic Allergic/Immunologic ED: Denies as per HPI, none, lip swelling, mouth swelling, throat swelling, tongue swelling or hives EXAM Physical Exam Const Vital Signs: 06/25/22 10:15 Temperature 98 F Temperature Source Temporal Pulse Rate 81 Respiratory Rate 18 Blood Pressure 134/83 H Blood Pressure Mean 100 Pulse Ox 99 Oxygen Delivery Method Room Air Positive well nourished and well developed General Appearance ED: well developed and NAD HEENT Reports TM's clear and moist mucous membranes HEENT Narrative: Patient has right upper facial swelling without any cellulitis noted. Patient has very poor dentition with multiple broken and carried teeth involving the upper and lower teeth. No discrete dental abscess or fluctuance noted. normocephalic and atraumatic; Negative for trauma or tenderness Tympanic Membrane ED: Yes TM's clear Eyes PERRL and EOMs intact bilaterally General Eye ED: Negative for pale conjunctiva or scleral icterus Neck no lymphadenopathy, supple and no JVD General: Negative for tenderness Chest Wall inspection of chest normal and palpation of chest normal Chest: Negative for tenderness Resp normal respiratory effort and clear to auscultation bilaterally Effort and Inspection: Negative for respiratory distress or pain with movement Auscultation: Negative for rhonchi, wheezes or diminished lung sounds Cardio regular rate, regular rhythm, S1 normal heart sound, S2 normal heart sound and no murmurs Peripheral Pulses: pulses 2+ throughout GI normal to inspection, nondistended, normoactive bowel sounds, soft to palpation, non-tender, non-distended and no masses Back/Spine no CVA tenderness and no thoracic nor lumbar tenderness Extremity normal to inspection General Extremety ED: Negative for edema General Extremity: Negative for edema Neuro oriented x3, CN's II-XII intact bilaterally, no sensory deficits noted and gait normal Sensorium / Orientation: awake, alert, oriented to person, oriented to place and oriented to time Motor Exam: strength 5/5 throughout and strength abnormal Psych mental status grossly normal Skin no rashes or lesions noted and no wounds MDM MDM MDM Narrative Medical decision making narrative: Patient has poor dentition on exam. No discrete abscess amenable to I&D noted. At this point will start on clindamycin and give [place] for pain. Patient will be given a list of dentists in the area to follow-up with. Patient advised to return if worsening pain, redness, fever, or condition should worsen anyway. Discharge Plan Triage Chief Complaint: Dental ED Provider: Raymond Harris Dx/Rx/DC Orders Clinical Impression: Pain, dental, Abscess, dental, Dental caries Instructions: ED Abscess Antibiotic Treatment Only, ED Dental Pain, ED Dental Cavity Prescriptions: New clindamycin HCl [Cleocin HCl] 300 mg capsule 300 mg PO Q6H Qty: 40 0RF hydrocodone-acetaminophen [hydrocodone-acetaminophen] 5-325 mg tablet 1 tab PO Q4H PRN PRN (Reason: Pain) 2 Days Qty: 10 0RF No Action mirtazapine 15 MG tablet 15 mg PO QHS Tylenol 1 g PO/SL clindamycin HCl [Cleocin HCl] 300 MG capsule 300 mg PO Q6H Qty: 40 0RF hydrocodone-acetaminophen [hydrocodone-acetaminophen] 1 TABLET tablet 1 tab PO Q6H PRN PRN (Reason: Pain) 3 Days Qty: 10 0RF Primary Care Provider: Enrike Vargas OPERATING ROOM SCHEDULER Referrals: Enrike Vargas NP, OPERATING ROOM SCHEDULER-C [Primary Care Provider] - Activity Restrictions/Additional Instructions: See a dentist at the earliest possible time for evaluation and definitive care. Disposition Disposition: Home, Self Care
[2022-06-25] MEDS: Clindamycin HCl 150 MG Capsule 300 MG PO (10:39)
== END 2022-06-25 10:46 | disposition home or self-care (01) ==
LOC: ED 10:35
PROVIDERS: Emergency Provider Emergency Medicine; PCP Nurse Practitioner Family; Visit Provider Emergency Medicine
DX: K04.7 Periapical abscess without sinus (principal); K02.9 Dental caries, unspecified; F17.210 Nicotine dependence, cigarettes, uncomplicated
CPT/HCPCS: 99283

== ENCOUNTER 2025-05-16 18:07 | Emergency (ER) | payer MEDICARE, MEDICAID, SELFPAY ==
[2025-05-16 18:07] VITALS: BP 158/100; PULSE 85; RESP 16; TEMP 36.3; O2SAT 99; BMI 27.4
--- NOTE | 2025-05-16 18:33 | EDS_ITS ---
HPI History of Present Illness Chief Complaint: Back Narrative Narrative: Chief complaint and HPI: Left sciatic pain. 30-year-old male with past medical history of DDD and sciatica presents for evaluation of left sciatic flare. Patient states for years he has had chronic lumbar back pain/sciatica triage note states 3 months although states it has been years. Patient states he developed a flare this week in which his home remedies of Tylenol and ibuprofen are not helping. States it feels like his typical sciatic flares. Denies numbness, weakness, urinary retention, stool or urinary incontinence, saddle anesthesia, recent invasive manipulation of the spine, intravenous drug use, or fever. Does not follow with pain management or orthopedic physician. States his pain is mostly in the left lower lumbar into the left buttocks Review of systems: See HPI Medications: As listed on the chart Allergies: As listed on the chart PFSH: Per chart Vital signs: As listed on the chart. Reviewed. Physical exam: Gen: A&O x3, NAD Head: Normocephalic, atraumatic Eyes: No sclera icterus, conjunctiva clear ENT: Moist mucous membranes Neck: Trachea midline, No JVD, full range of motion CV: RRR, no murmurs, no peripheral edema Resp: Lungs CTA BL, no w/r/c GI: Abd soft, non-distended, non-tender, no r/r/g Musc: Full ROM, no deformity, strength +5/5 in all extremities, DP/PT pulses +2 bilaterally, no saddle paresthesias, no midline spinal tenderness, no bony step- off, tender to palpation of the left lower lumbar paraspinal musculature and into the left buttocks Skin: Warm, dry Neuro: Alert, oriented, grossly intact, sensation intact Psych: Cooperative, appropriate mood and affect [facility] Medical History Dental abscess Home Medications ?Medication ?Instructions ?Recorded ?Last Taken ?Type mirtazapine 15 mg tablet 15 mg PO QHS Sleep 06/03/14 Unknown History Tylenol 1 g PO/SL 07/24/21 Unknown H istory cyclobenzaprine 5 mg tablet 5 mg PO TID PRN muscle spa sm 3 05/16/25 Unknown Rx days #9 tabs oxycodone 5 mg capsule 5 mg PO Q6H PRN pain 2 days #8 caps 05/16/25 Unknown Rx Allergy/AdvReac Type Severity Reaction Status Date / Time Penicillins Allergy Hives Verified 05/16/25 18:09 Social History (Updated 07/24/21 @ 21:[address] Cristian Amado, DO) Smoking Status: Current every day smoker tobacco type: e-cigarettes substance use type: does not use EXAM Physical Exam Const Vital Signs: 05/16/25 18:07 Temperature 97.4 F L Temperature Source Temporal Pulse Rate 85 Respiratory Rate 16 Blood Pressure 158/100 H Blood Pressure Mean 119 Pulse Ox 99 Oxygen Delivery Method Room Air MDM MDM MDM Narrative Medical decision making narrative: 30-year-old male with past medical history of DDD and sciatica presents for evaluation of left sciatic flare. Patient states for years he has had chronic lumbar back pain/sciatica. He developed a flare this week in which his home remedies of Tylenol and ibuprofen are not helping. There has been no trauma. There is nothing to suggest any infectious etiology. The patient is not an IV drug user. There is no neurologic findings to suggest an acute cauda equina syndrome, infectious etiology, or any acute radiculopathy. At this point I do not feel any emergent imaging such as x-rays or MRI are warranted. Patient symptoms will be treated with morphine and Valium. Will reassess pain. On reevaluation, patient's pain has improved. Patient stable to discharge home. Will send him home with muscle relaxers as well as short course of narcotics for severe pain. Continue Tylenol and ibuprofen. Follow-up with primary care physician as well as will refer him to orthopedic spine. He confirmed und erstanding of plan. Return precautions explained. Impression: 1. Left sciatic pain Discharge Plan Triage Chief Complaint: Back ED Provider: Nimesh Vela Dx/Rx/DC Orders Clinical Impression: Left sided sciatica Instructions: ED Sciatica Prescriptions: New cyclobenzaprine 5 mg tablet 5 mg PO TID PRN (Reason: muscle spasm) 3 Days Qty: 9 0RF oxycodone 5 mg capsule 5 mg PO Q6H PRN (Reason: pain) 2 Days Qty: 8 0RF No Action mirtazapine 15 MG tablet 15 mg PO QHS Tylenol 1 g PO/SL Primary Care Provider: Enrike Vargas INSTRUCTIONAL TECHNOLOGY TEACHER Referrals: Panchito Bal MD [Med Staff - Active Staff] - 3-5 Days Enrike Vargas NP, INSTRUCTIONAL TECHNOLOGY TEACHER-C [Primary Care Provider] - 3-5 Days Activity Restrictions/Additional Instructions: Follow-up with your primary care physician as well as orthopedic physician. Return back to the ED if symptoms change or worsen. Your blood pressure was high here in the emergency department, follow-up with your primary care physician for this. Do not operate heavy machinery or drive while taking muscle relaxers or narcotics. They can increase confusion, falls, weakness. Print Language: Norwegian Disposition Disposition: Home, Self Care
[2025-05-16 20:00] VITALS: BP 130/86; PULSE 71; RESP 18; TEMP 36.6; O2SAT 97
== END 2025-05-16 20:08 | disposition home or self-care (01) ==
PROVIDERS: Emergency Provider Surgery; PCP Nurse Practitioner Family; Visit Provider Surgery
DX: M54.32 Sciatica, left side (principal); F17.290 Nicotine dependence, other tobacco product, uncomplicated
CPT/HCPCS: 96374; 96375; 99285; A4216; J2405

== ENCOUNTER 2025-05-20 07:10 | Emergency (ER) | payer MEDICARE, MEDICAID, SELFPAY ==
[2025-05-20 07:11] VITALS: BP 158/98; PULSE 101; RESP 18; TEMP 36.7; O2SAT 99; BMI 32.1
--- NOTE | 2025-05-20 07:25 | ED.VIS.BACK ---
HPI History of Present Illness Chief Complaint: Back Detail of Chief Complaint: Back pain Informant: patient Narrative Narrative: Patient presents with back pain that started 3 months ago. Patient states that he bent over with his left leg up in the air and felt a bolt of electricity in his back and down his left leg. He has been using heating pad which is not helping. He was seen in the emergency department 4 days ago for same and was medicated with pain medication and muscle relaxers for home. He had no imaging at that time. Continues to complain of severe pain and not able to sleep at night. Patient states he has to walk hunched over and with a cane. Has a hard time bearing any weight on the left leg. He denies any injury to his back otherwise. He denies loss of bowel or bladder function. He had some paresthesias to the left leg before but that seems to have resolved. Denies saddle anesthesia or difficulty with erection. Pain is a 10 out of 10. He is scheduled to follow-up with orthopedic office in 6 days. Patient states that he had x-rays 5 years ago with chiropractor who told him he had degenerative disc disease. He has never had any MRI imaging. [facility] Medical History Dental abscess Home Medications ?Medication ?Instructions ?Recorded ?Last Taken ?Type mirtazapine 15 mg tablet 15 mg PO QHS Sleep 06/03/14 Unknown History hydrocodone-acetaminophen 5-325mg 1 tab PO Q4H PRN PRN Pain 2 days 05/20/25 Unknown Rx 5mg-325mg #15 TABLETS ibuprofen 600 mg tablet 600 mg PO Q6H PRN PRN pain 05/20/25 Unknown History methylprednisolone 4 mg tablets in 4 mg PO DAILY #21 tabs 05/20/25 Unknown Rx a dose pack (Medrol (Manuel)) naproxen 500 mg tablet 500 mg PO BID #14 tabs 05/20/25 Unknown Rx Allergy/AdvReac Type Severity Reaction Status Date / Time Penicillins Allergy Hives Verified 05/20/25 07:11 Social History (Updated 07/24/21 @ 21:[address] Cristian Amado DO) Smoking Status: Current every day smoker tobacco type: e-cigarettes substance use type: does not use ROS ROS ED Review of Systems ROS Unobtainable: other Constitutional Constitutional ED: Reports lethargy; Denies chills, fever(s), sweats or weight loss Eyes Eyes: Denies blurry vision, change in vision or diplopia ENT ENT ED: Denies rhinorrhea or sore throat Cardiovascular Cardiovascular: Denies chest pain, orthopnea or racing heartbeat Respiratory/Chest Respiratory/Chest: Denies cough, dyspnea, dyspnea on exertion, orthopnea or sputum Gastrointestinal Gastrointestinal: Denies abdominal pain, diarrhea, nausea or vomiting Genitourinary Genitourinary ED: Denies dysuria, hematuria or urinary frequency Musculoskeletal Musculoskeletal: Reports back pain; Denies arthralgias, myalgias or neck pain Integumentary Denies abscess, Abrasions or rash Neurologic Neurologic: Denies headache(s) or weakness Psychiatric Psychiatric: Denies anxiety, depression or suicidal thoughts Endocrine Endocrinology: Denies polydipsia, polyphagia or polyuria Hematologic/Lymphatic Hematologic/Lymphatic: Denies easy bleeding, easy bruising or lymphadenopathy Allergic/Immunologic Allergic/Immunologic ED: Denies mouth swelling, tongue swelling or urticaria EXAM Physical Exam Const Vital Signs: 05/20/25 07:11 05/20/25 09:53 Temperature 98.1 F Temperature Source Temporal Pulse Rate 101 H 88 Respiratory Rate 18 Blood Pressure 158/98 H 130/90 H Blood Pressure Mean 118 103 Pulse Ox 99 98 Positive well nourished and well developed General Appearance ED: well developed and NAD HEENT Reports TM's clear and moist mucous membranes normocephalic and atraumatic; Negative for trauma or tenderness Tympanic Membrane ED: Yes TM's clear Eyes PERRL and EOMs intact bilaterally General Eye ED: Negative for pale conjunctiva or scleral icterus Neck no lymphadenopathy, supple and no JVD General: Negative for tenderness Chest Wall inspection of chest normal and palpation of chest normal Chest: Negative for tenderness Resp normal respiratory effort and clear to auscultation bilaterally Effort and Inspection: Negative for respiratory distress or pain with movement Auscultation: Negative for rhonchi, wheezes or diminished lung sounds Cardio regular rate, regular rhythm, S1 normal heart sound, S2 normal heart sound and no murmurs Peripheral Pulses: pulses 2+ throughout GI normal to inspection, nondistended, normoactive bowel sounds, soft to palpation, non-tender, non-distended and no masses Back/Spine no CVA tenderness and no thoracic nor lumbar tenderness Back/Spine Narrative: Mild tenderness over the left lumbar paraspinal musculature. No significant bony tenderness on exam. He does have some skin discoloration in the left lumbar paraspinal region from heating pad. Positive straight leg raise while supine at about 30 degrees. Deep tendon reflexes plus 2 out of 4 bilaterally at the patella and Achilles. He has normal L5 extension bilaterally. He has normal sensation to light touch. Extremity normal to inspection General Extremety ED: Negative for edema General Extremity: Negative for edema Neuro oriented x3, CN's II-XII intact bilaterally, no sensory deficits noted and gait normal Sensorium / Orientation: awake, alert, oriented to person, oriented to place and oriented to time Motor Exam: strength 5/5 throughout and strength abnormal Psych mental status grossly normal Skin no rashes or lesions noted and no wounds MDM MDM MDM Narrative Medical decision making narrative: Patient presents with ongoing back pain for about 3 months seen in the emergency department 4 days ago for same. No recent imaging. Positive straight leg raise on the left with history consistent with sciatica. No red flag symptoms of cauda equina otherwise. IV line established. He was medicated with Dilaudid as well as Zofran and given prednisone. Patient had an MRI ordered of his lumbar spine. I did give him a milligram of Ativan p.o. as he does have some history of being claustrophobic. MRI obtained showed moderate size central and left paracentral disc herniation at L4-5 level causing central canal stenosis and stenosis of the left intervertebral foramina causing compression of the exiting nerve root. Discussed case with Dr. Veloz's physician hardware sales assistant whom patient is scheduled to see in 6 days. It was recommended that we refer patient to pain management and they will see patient in the office. Till that time I will start her on a Medrol Dosepak and will write for hydrocodone for pain. Lab Data Attestation: I reviewed the patient's lab results. Radiography Diagnostic Testing: Clinical Impression(s) from Imaging Studies Lumbar Spine MRI 05/20/25 09:20 IMPRESSION: Moderate-sized central and left paracentral disc herniation at the L4-L5 level causing central canal stenosis and stenosis of the left intervertebral foramen causing compression of the exiting nerve root. Reading Location: [facility] Discharge Plan Triage Chief Complaint: Back ED Provider: Raymond Harris Dx/Rx/DC Orders Clinical Impression: Back pain, Left lumbar radiculopathy, Lumbar disc herniation Instructions: ED Back Pain (Acute or Chronic), ED Sciatica Prescriptions: New methylprednisolone [Medrol (Manuel)] 4 mg tablets,dose pack 4 mg PO DAILY Qty: 21 0RF Rx Instructions: Take Medrol Dosepak as instructed in packaging. hydrocodone-acetaminophen 5-325 mg tablet 1 tab PO Q4H PRN PRN (Reason: Pain) 2 Days Qty: 15 0RF naproxen 500 mg tablet 500 mg PO BID Qty: 14 0RF No Action mirtazapine 15 MG tablet 15 mg PO QHS ibuprofen 600 mg tablet 600 mg PO Q6H PRN PRN (Reason: pain) Primary Care Provider: Enrike Vargas NP Referrals: Janel Woods MD [Med Staff - Active Staff] - 3-5 Days Enrike Vargas NP, [employer] [Primary Care Provider] - Print Language: Fijian Disposition Disposition: Home, Self Care
--- NOTE | 2025-05-20 09:20 | MRI_ITS ---
PROCEDURE: SPINE LUMBAR (ROUTINE) 05/20/2025 REASON FOR EXAM: BACK PAIN, LEFT LEG PAIN, WEAKNESS TECHNIQUE: SPINE LUMBAR (ROUTINE) COMPARISON: None FINDINGS: Vertebrae: There is evidence of subchondral sclerosis at the L4-L5 vertebral level. Alignment: Straightening of the normal lumbar lordosis most likely secondary to muscular spasm. Conus Medullaris: Terminates at the L1-L2 level. L1-2: The disc space is well-maintained. The disc is well hydrated. L2-3: The disc space is well-maintained. There is evidence of dehydration of the disc. No evidence of herniation. L3-4: Disc space is well-maintained. Dehydration of the disc. No evidence of central or neural foraminal stenosis. L4-5: Moderate degree of disc space narrowing and disc degeneration. Subchondral sclerosis along the inferior endplate of the L4 vertebrae and superior endplate of the L5 vertebrae. Moderate-sized central and left paracentral disc herniation causing compression of the exiting nerve root on the left side corresponding to the patient's clinical findings. L5-S1: Mild degree of disc space narrowing and disc degeneration. Minimal central disc bulge although no evidence of central or neural foraminal stenosis. Sacrum: Unremarkable MRI/Spine Lumbar (Routine) IMPRESSION: Moderate-sized central and left paracentral disc herniation at the L4-L5 level causing central canal stenosis and stenosis of the left intervertebral foramen causing compression of the exiting nerve root. Reading Location: [id number]
[2025-05-20 09:53] VITALS: BP 130/90; PULSE 88; O2SAT 98
[2025-05-20 10:58] VITALS: BP 133/91; PULSE 99; RESP 18; TEMP 36.4; O2SAT 93
== END 2025-05-20 11:11 | disposition home or self-care (01) ==
PROVIDERS: Emergency Provider Emergency Medicine; PCP Nurse Practitioner Family; Visit Provider Emergency Medicine
DX: M51.16 Intervertebral disc disorders with radiculopathy, lumbar region (principal); F17.290 Nicotine dependence, other tobacco product, uncomplicated; F40.240 Claustrophobia; M48.061 Spinal stenosis, lumbar region without neurogenic claudication; M54.9 Dorsalgia, unspecified
CPT/HCPCS: 72148; 96374; 96375; 99285; A4216; J2405